=== PATIENT | female | born 1995 | race Two or more races ===

== ENCOUNTER → 2024-08-31 | Outpatient (CLI) | payer OTHER ==
[2024-08-31 11:29] LABS: Free T3 2.95 pg/mL (2.3-4.2); Free T4 (Free Thyroxine) 0.94 ng/dL (0.89-1.76)
== END | disposition home or self-care (01) ==
LOC: LAB 10:45
PROVIDERS: ATTEND Obstetrics & Gynecology
DX: Z34.80 Encounter for supervision of other normal pregnancy, unspecified trimester (principal); Z3A.00 Weeks of gestation of pregnancy not specified
CPT/HCPCS: 36415; 84439; 84443; 84481

== ENCOUNTER 2024-11-15 07:44 | Observation (INO) | payer OTHER ==
[2024-11-15] MEDS ORDERED: PREN-96 PO (13:32)
[2024-11-15] MEDS ORDERED: METF-370 PO (13:32)
[2024-11-15] MEDS ORDERED: LEVO50TA7 PO (13:32)
--- NOTE | 2024-11-15 14:14 | DVH ---
BIOPHYSICAL PROFILE HISTORY: GDMA1 Comparison Study: None available at time of dictation. TECHNIQUE: Multiple real-time grayscale sonographic images through the gravid uterus of the fetus wi th duplex Doppler color flow and M-mode spectral analysis FINDINGS: BIOPHYSICAL PROFILE: breathing score: 2 movement score: 2 tone score: 2 Quantitative SANDRA score: 2 (SANDRA: 19.6 Cm.) Total score: 8/8 The cervix is not seen. Single live fetus in cephalic presentation. heart rate 136 beats per minute. Posterior placenta without previa or abruption Biophysical profile score 8/8 corresponding to an DONY of 01/09/25 IMPRESSION: Biophysical profile score: 8/8
[2024-11-16] MEDS ORDERED: NIFE10CA52 PO (14:21)
[2024-11-16] MEDS ORDERED: CEPH250C PO (14:21)
--- NOTE | 2024-11-17 09:09 | DVHDS2 ---
Physician Discharge Progress N Final Diagnosis: gdm,hypothyroidism 32wks Operations or Procedures: Operations or Procedures nst 32 wks,sono Condition on Discharge: Good Disposition: Home Discharge Instructions: Diet: Consistent carbohydrate Activity: No Restrictions, As Tolerated Medications: na Follow Up Care: Specialist: 4d Discharge Statement: "Patient was advised to return to the ER or call 911 if any headaches, dizziness, shortness of breath, chest pain, abdominal pain, bleeding, fevers, or worsening of medical condition. Patient was counseled about treatment plan, medications, possible side effects, patientverbalized understanding. All questions were answered to the best of my ability. This discharge took greater then 30 minutes in planning, reviewing documentation, counseling the patient, and discussing with other team members." Visit Coding OBGYN Date of Service: Nov 15, 2024 Billing Provider: NEIL SINGH DO MANAGER FLEET Common Visit Codes: 68739-[id number] INP/OBS CARE (HIGH) MANAGER FLEET Procedure Codes: 88733-28- NON-STRESS TEST NEIL SINGH DO Nov 17, 2024 09:09
[2024-12-24] MEDS ORDERED: CEPH500T PO (08:56)
[2024-12-24] MEDS ORDERED: HYDR-4072 PO (08:56)
[2024-12-24] MEDS ORDERED: IBUP-1456 PO (08:56)
[2024-12-24] MEDS ORDERED: DOCU-94 PO (08:56)
== END 2024-11-15 14:25 | disposition home or self-care (01) ==
LOC: LDRP 13:00 → UNDOADMOB 13:00 → LDRP 13:11 → UNDODISOB 14:25
PROVIDERS: ADMIT Obstetrics & Gynecology; ATTEND Obstetrics & Gynecology
DX: O24.419 Gestational diabetes mellitus in pregnancy, unspecified control (principal); O99.283 Endocrine, nutritional and metabolic diseases complicating pregnancy, third trimester; E03.9 Hypothyroidism, unspecified; Z3A.32 32 weeks gestation of pregnancy; Z79.899 Other long term (current) drug therapy
CPT/HCPCS: 76818; 81002; 82948; 82962; 94760; G0378; 59025; 76819

== ENCOUNTER 2024-11-16 09:36 | Observation (INO) | payer OTHER ==
[~2024-11-16] VITALS: Ht 160 cm; Wt 81.6 kg
[~2024-11-16 09:36] MED LIST: LEVO50TA7 PO; METF-370 PO; PREN-96 PO
[2024-11-16] MEDS ORDERED: LACTATED RINGER'S 1,000 ML IV SCH (10:45)
[2024-11-16] MEDS: TERBUTALINE SULFATE 1 MG/ML 1ML VIAL SC ONE (10:45)
[2024-11-16] MEDS: NIFEdipine 10 MG CAP PO ONE (11:17)
--- NOTE | 2024-11-16 11:40 | DVH ---
LIMITED OB ULTRASOUND > 14 WKS: HISTORY: labor TECHNIQUE: Multiple real-time grayscale images of the gravid uterus with duplex Doppler color flow an d M-mode spectral analysis. TRANSDUCER: Transabdominal FINDINGS: IUP single live fetus at 34 weeks 2 days based on composite averages of the BPD, head circumference, abdominal circumference and femur length Estimated weight 2280 grams heart rate 167 beats per minute SANDRA 14.7 cm Cervix not well visualized Cephalic Presentation Posterior Placenta without previa or abruption. IMPRESSION: IUP single live fetus at 34 weeks 2 days AUA corresponding to an DONY of 12/26/2024
[2024-11-16] MEDS: TERBUTALINE SULFATE 1 MG/ML 1ML VIAL SC SCH (11:41)
[2024-11-16] MEDS: BETAMETHASONE ACET (30mg/5ml) 5ml Vial 6mg/ml IM ONE (12:07)
[2024-11-16] MEDS: ceFAZolin 2 GM/D5W50ml 50 ML IV ONE (12:19)
[2024-11-16] MEDS: LACTATED RINGER'S 1,000 ML IV ONE (12:20)
[2024-11-16] MEDS ORDERED: CEPH250C PO ×2 (14:21)
[2024-11-16] MEDS ORDERED: NIFE10CA52 PO (14:21)
[2024-11-16] MEDS ORDERED: BETAMETHASONE ACET (30mg/5ml) 5ml Vial 6mg/ml IM SCH (22:00)
--- NOTE | 2024-11-17 09:50 | DVHDS2 ---
Physician Discharge Progress N Final Diagnosis: 322 wks ptl Operations or Procedures: Operations or Procedures nst 32 wks,sono Condition on Discharge: Good Disposition: Home Discharge Instructions: Diet: Regular Activity: Light activity Medications: na Follow Up Care: Specialist: 1d Discharge Statement: "Patient was advised to return to the ER or call 911 if any headaches, dizziness, shortness of breath, chest pain, abdominal pain, bleeding, fevers, or worsening of medical condition. Patient was counseled about treatment plan, medications, possible side effects, patientverbalized understanding. All questions were answered to the best of my ability. This discharge took greater then 30 minutes in planning, reviewing documentation, counseling the patient, and discussing with other team members." Visit Coding OBGYN Date of Service: Nov 16, 2024 Billing Provider: NEIL SINGH DO LANDSCAPING SPECIALIST Common Visit Codes: 75513-[id number] INP/OBS CARE (HIGH) LANDSCAPING SPECIALIST Procedure Codes: 14004-85- NON-STRESS TEST NEIL SINGH DO Nov 17, 2024 09:50
== END 2024-11-16 14:40 | disposition home or self-care (01) ==
LOC: LDRP 09:36 → UNDOADMOB 09:36 → LDRP 09:46
PROVIDERS: ADMIT Obstetrics & Gynecology; ATTEND Obstetrics & Gynecology
DX: O60.03 Preterm labor without delivery, third trimester (principal); Z3A.32 32 weeks gestation of pregnancy; Z79.899 Other long term (current) drug therapy
CPT/HCPCS: 59025; 76805; 81002; 82948; 82962; 94760; 96365; 96372; G0378; J0690; J0702; J3105

== ENCOUNTER 2024-11-17 12:00 | Observation (INO) | payer OTHER ==
[~2024-11-17] VITALS: Ht 33 cm; Wt 0.5 kg
[~2024-11-17 12:00] MED LIST changes: +CEPH250C PO; +NIFE10CA52 PO
[2024-11-17] MEDS: BETAMETHASONE ACET (30mg/5ml) 5ml Vial 6mg/ml IM ONE (13:24)
--- NOTE | 2024-11-17 14:04 | DVH ---
Procedure: US BIOPHYSICAL PROFILE 11/17/2024 12:33 PM Indication: GDMA2 Comparison: US BIOPHYSICAL PROFILE on DOS: 11/15/24 Technique: Sonogram of gravid uterus utilizing grayscale and color techniques. FINDINGS: Single living intrauterine gestation. Presentation: Cephalic Placenta: Posterior heart rate: 151 bpm SANDRA: 16.8 cm, DVP: 6.1 cm Maternal cervix: Not visualized Biophysical Profile: breathing score: 2 movement score: 2 tone: 2 Quantitative SANDRA score: 2 Total score: 8/8 IMPRESSION: 1. Single living as above. 2. Biophysical profile score: 8/8.
--- NOTE | 2024-11-17 15:23 | DVHDS2 ---
Physician Discharge Progress N Final Diagnosis: GDMA2 PTL Operations or Procedures: Operations or Procedures NST/BPP/SANDRA 2nd dose of Celestone given Condition on Discharge: Stable Disposition: Home Discharge Instructions: Diet: Regular Activity: No Restrictions, As Tolerated Follow Up/Referral: as scheduled Medications: N/A Follow Up Care: Discharge Statement: "Patient was advised to return to the ER or call 911 if any headaches, dizziness, shortness of breath, chest pain, abdominal pain, bleeding, fevers, or worsening of medical condition. Patient was counseled about treatment plan, medications, possible side effects, patientverbalized understanding. All questions were answered to the best of my ability. This discharge took greater then 30 minutes in planning, reviewing documentation, counseling the patient, and discussing with other team members." Visit Coding OBGYN Date of Service: Nov 17, 2024 Billing Provider: XAVIER HODGES DO LENS ASSORTER Common Visit Codes: 20356-IMF/OBS SAME DATE (HIGH) LENS ASSORTER Procedure Codes: 53102-62- NON-STRESS TEST XAVIER HODGES DO Nov 17, 2024 15:23
[2024-12-24] MEDS ORDERED: HYDR-4072 PO (08:56)
[2024-12-24] MEDS ORDERED: CEPH500T PO (08:56)
[2024-12-24] MEDS ORDERED: IBUP-1456 PO (08:56)
[2024-12-24] MEDS ORDERED: DOCU-94 PO (08:56)
== END 2024-11-17 14:00 | disposition home or self-care (01) ==
LOC: LDRP 12:00
PROVIDERS: ADMIT Obstetrics & Gynecology; ATTEND Obstetrics & Gynecology
DX: O60.03 Preterm labor without delivery, third trimester (principal); O99.891 Other specified diseases and conditions complicating pregnancy; M54.9 Dorsalgia, unspecified; R51.9 Headache, unspecified; O24.419 Gestational diabetes mellitus in pregnancy, unspecified control; Z3A.32 32 weeks gestation of pregnancy; Z79.899 Other long term (current) drug therapy
CPT/HCPCS: 76818; 81002; 94760; 96372; G0378; 59025

== ENCOUNTER 2024-11-18 09:55 | Observation (INO) | payer OTHER | END 2024-11-18 10:00 | disposition home or self-care (01) | LOC: LDRP 09:55 | PROVIDERS: ADMIT Obstetrics & Gynecology; ATTEND Obstetrics & Gynecology | DX: O62.9 Abnormality of forces of labor, unspecified (principal); Z79.899 Other long term (current) drug therapy; Z98.890 Other specified postprocedural states; Z3A.00 Weeks of gestation of pregnancy not specified ==

== ENCOUNTER 2024-11-21 07:29 | Observation (INO) | payer OTHER ==
--- NOTE | 2024-11-21 10:00 | DVH ---
BIOPHYSICAL PROFILE HISTORY: GDMA2 TECHNIQUE: Multiple transabdominal real-time grayscale sonographic images through the gravid uterus of the fetus with duplex Doppler color flow and M-mode spectral analysis FINDINGS: BIOPHYSICAL PROFILE: breathing score: 2 movement score: 2 tone score: 2 Quantitative SANDRA score: 2 (SANDRA: 15.9 Cm.) Total score: 8 The cervix not well visualized. Single live fetus in cephalic presentation. heart rate 150 beats per minute. Posterior placenta without previa or abruption IMPRESSION: Biophysical profile score: 8
--- NOTE | 2024-11-21 21:14 | DVHDS2 ---
Physician Discharge Progress N Final Diagnosis: testing for GDMA2/hypothyroidism/PTL Operations or Procedures: Operations or Procedures 29yo IUP@33wks, +FM, denies UCs/VB/LOF VSS NST reactive FKC/PTL precautions reviewed. Dr. Clements consulted, agrees with POC. Other Interventions Other Interventions [place] [address] Ph: [phone] DIAGNOSTIC IMAGING Diagnostic Imaging Report : [id number] Signed PATIENT: AVINASH CARVALHO ACCT: [id number] UNIT: [id number] : 1995 LOC: [facility] ROOM / BED: TRIAGE1 / A AGE / SEX: 29 / F ADM STATUS: ADM IN SERVICE 6 ORDERING PHYSICIAN: GITA HEATON CNM PROCEDURE(s): BPP - BIOPHYSICAL PROFILE REASON: GDMA2 ORDER NUMBER(s): [id number], ACCESSION NUMBER(s): [id number] BIOPHYSICAL PROFILE HISTORY: GDMA2 TECHNIQUE: Multiple transabdominal real-time grayscale sonographic images through the gravid uterus of the fetus with duplex Doppler color flow and M-mode spectral analysis FINDINGS: BIOPHYSICAL PROFILE: breathing score: 2 movement score: 2 tone score: 2 Quantitative SANDRA score: 2 (SANDRA: 15.9 Cm.) Total score: 8 The cervix not well visualized. Single live fetus in cephalic presentation. heart rate 150 beats per minute. Posterior placenta without previa or abruption IMPRESSION: Biophysical profile score: 8 ATED BY: CHAPO BLAIR MD DICTATED DATE/TIME: 11/21/24 1000 SIGNED BY: CHAPO BLAIR MD SIGNED DATE/TIME: 11/21/24 1000 CC: Condition on Discharge: Stable Disposition: Home Discharge Instructions: Diet: Consistent carbohydrate Activity: See Comment Activity comment: pelvic rest Medications: see med list Follow Up Care: Specialist: f/u in 3 days Discharge Statement: "Patient was advised to return to the ER or call 911 if any headaches, dizziness, shortness of breath, chest pain, abdominal pain, bleeding, fevers, or worsening of medical condition. Patient was counseled about treatment plan, medications, possible side effects, patientverbalized understanding. All questions were answered to the best of my ability. This discharge took greater then 30 minutes in planning, reviewing documentation, counseling the patient, and discussing with other team members." Visit Coding OBGYN Date of Service: Nov 21, 2024 Billing Provider: GITA HEATON CNM ADMINISTRATOR OF HOME HEALTH Common Visit Codes: 10095-[id number] OBS CARE (HIGH) ADMINISTRATOR OF HOME HEALTH Procedure Codes: 57571-66- NON-STRESS TEST GITA HEATON CNM Nov 21, 2024 21:14
[2024-12-24] MEDS ORDERED: CEPH500T PO (08:56)
[2024-12-24] MEDS ORDERED: DOCU-94 PO (08:56)
[2024-12-24] MEDS ORDERED: IBUP-1456 PO (08:56)
[2024-12-24] MEDS ORDERED: HYDR-4072 PO (08:56)
== END 2024-11-21 10:16 | disposition home or self-care (01) ==
LOC: LDRP 09:00
PROVIDERS: ADMIT Obstetrics & Gynecology; ATTEND Obstetrics & Gynecology
DX: O24.419 Gestational diabetes mellitus in pregnancy, unspecified control (principal); O99.283 Endocrine, nutritional and metabolic diseases complicating pregnancy, third trimester; E03.9 Hypothyroidism, unspecified; Z98.890 Other specified postprocedural states; Z79.899 Other long term (current) drug therapy; Z3A.33 33 weeks gestation of pregnancy
CPT/HCPCS: 76818; 81002; 82948; 82962; 94760; G0378; 59025

== ENCOUNTER 2024-11-24 08:31 | Observation (INO) | payer OTHER ==
--- NOTE | 2024-11-24 18:51 | DVH ---
Procedure: US BIOPHYSICAL PROFILE 11/24/2024 03:27 PM Indication: GDMA2/Hypothyroid/PTL Comparison: US BIOPHYSICAL PROFILE on DOS: 11/21/24, US BIOPHYSICAL PROFILE on DOS: 11/17/24, US BIOPHYS ICAL PROFILE on DOS: 11/15/24 Technique: Sonogram of gravid uterus utilizing grayscale and color techniques. FINDINGS: Single living intrauterine gestation. Presentation: Cephalic Placenta: Posterior, grade 2 heart rate: 148 bpm SANDRA: 18.2 cm, DVP: 6 cm Maternal cervix: There is interval V-shaped funneling with internal measuring 1 cm in transverse. The cervix measures 3.9 cm in length in the transvaginal scan, moderately fluid-filled outlining plicae palmatae. Biophysical Profile: breathing score: 2 movement score: 2 tone: 2 Quantitative SANDRA score: 2 Total score: 8/8 IMPRESSION: 1. Single living as above. 2. Biophysical profile score: 8/8. 3. Interval V-shaped funneling of the internal os measuring 1 cm in transverse with moderate amount o f fluid in the cervical canal.
--- NOTE | 2024-11-25 08:13 | DVHDS2 ---
Physician Discharge Progress N Final Diagnosis: gdm 33wks,ptl,hypothyroid Operations or Procedures: Operations or Procedures nst,sono Condition on Discharge: Good Disposition: Home Discharge Instructions: Diet: Regular Activity: No Restrictions, As Tolerated Medications: na Follow Up Care: Specialist: 4d Discharge Statement: "Patient was advised to return to the ER or call 911 if any headaches, dizziness, shortness of breath, chest pain, abdominal pain, bleeding, fevers, or worsening of medical condition. Patient was counseled about treatment plan, medications, possible side effects, patientverbalized understanding. All questions were answered to the best of my ability. This discharge took greater then 30 minutes in planning, reviewing documentati on, counseling the patient, and discussing with other team members." Visit Coding OBGYN Date of Service: Nov 24, 2024 Billing Provider: NEIL SINGH DO JINRIKSHA DRIVER Common Visit Codes: 40269-[id number] INP/OBS CARE (HIGH) JINRIKSHA DRIVER Procedure Codes: 43078-92- NON-STRESS TEST NEIL SINGH DO Nov 25, 2024 08:13
== END 2024-11-24 17:03 | disposition home or self-care (01) ==
LOC: LDRP 14:58 → UNDOADMOB 14:58 → LDRP 15:04
PROVIDERS: ADMIT Obstetrics & Gynecology; ATTEND Obstetrics & Gynecology
DX: O60.03 Preterm labor without delivery, third trimester (principal); O24.419 Gestational diabetes mellitus in pregnancy, unspecified control; O99.283 Endocrine, nutritional and metabolic diseases complicating pregnancy, third trimester; E03.9 Hypothyroidism, unspecified; Z3A.33 33 weeks gestation of pregnancy; Z79.899 Other long term (current) drug therapy; Z98.890 Other specified postprocedural states
CPT/HCPCS: 76817; 76818; 81002; 82948; 82962; G0378; 59025

== ENCOUNTER 2024-11-28 06:55 | Observation (INO) | payer OTHER ==
--- NOTE | 2024-11-28 15:24 | DVH ---
BIOPHYSICAL PROFILE HISTORY: GDMA2/HYPOTHYROID Comparison Study: 11/24/2024 TECHNIQUE: Multiple real-time grayscale sonographic images through the gravid uterus of the fetus wi th duplex Doppler color flow and M-mode spectral analysis FINDINGS: BIOPHYSICAL PROFILE: breathing score: 2 movement score: 2 tone score: 2 Quantitative SANDRA score: 2 (SANDRA: 17.2 Cm.) Total score: 8 The cervix is not visualized Single live fetus in cephalic presentation. heart rate 148 beats per minute. Posterior placenta without previa or abruption IMPRESSION: Biophysical profile score: 8
--- NOTE | 2024-11-30 12:45 | DVHDS2 ---
Physician Discharge Progress N Final Diagnosis: ptl,gdm 34 wks Operations or Procedures: Operations or Procedures nst,sono Condition on Discharge: Good Disposition: Home Discharge Instructions: Diet: Consistent carbohydrate Activity: No Restrictions, As Tolerated Follow Up/Referral: as scheduled. Medications: na Follow Up Care: Specialist: 1w Discharge Statement: "Patient was advised to return to the ER or call 911 if any headaches, dizziness, shortness of breath, chest pain, abdominal pain, bleeding, fevers, or worsening of medical condition. Patient was counseled about treatment plan, medications, possible side effects, patientverbalized understanding. All questions were answered to the best of my ability. This discharge took greater then 30 minutes in planning, reviewing documentation, counseling the patient, and discussing with other team members." Visit Coding OBGYN Date of Service: Nov 28, 2024 Billing Provider: NEIL SINGH DO SPLITTER HEAD Common Visit Codes: 22567-[id number] INP/OBS CARE(HIGH) SPLITTER HEAD Procedure Codes: 44965-71- NON-STRESS TEST NEIL SINGH DO Nov 30, 2024 12:45
== END 2024-11-28 15:10 | disposition home or self-care (01) ==
LOC: UNDOADMOB 14:00 → LDRP 14:00
PROVIDERS: ADMIT Obstetrics & Gynecology; ATTEND Obstetrics & Gynecology
DX: O24.419 Gestational diabetes mellitus in pregnancy, unspecified control (principal); O99.283 Endocrine, nutritional and metabolic diseases complicating pregnancy, third trimester; E03.9 Hypothyroidism, unspecified; Z98.890 Other specified postprocedural states; Z79.899 Other long term (current) drug therapy; Z3A.34 34 weeks gestation of pregnancy
CPT/HCPCS: 76818; 81002; 82948; 82962; 94760; G0378; 59025; 76819

== ENCOUNTER 2024-12-01 13:54 | Observation (INO) | payer OTHER ==
--- NOTE | 2024-12-01 15:25 | DVH ---
EXAM: US BIOPHYSICAL PROFILE HISTORY: GDMA2/hypothyroid COMPARISON: US BIOPHYSICAL PROFILE on DOS: 11/28/24, US BIOPHYSICAL PROFILE on DOS: 11/24/24, US BIOPHYS ICAL PROFILE on DOS: 11/21/24 TECHNIQUE: Multiple transabdominal real-time grayscale sonographic images through the gravid uterus of the fetus with duplex Doppler color flow and M-mode spectral analysis Findings/Impression: Single live intrauterine in vertex presentation with heart rate of 157 bpm. Biophysical profile was performed with 2 points for respirations, 2 points for movement, 2 points for tone and 2 points for amniotic fluid index. Biophysical profile score of 8/8. Amniotic fluid is within normal limits with SANDRA 16.9 cm and MVP 5.7 cm. Normal SANDRA (5-25 cm) Normal MVP (2-8 cm)
--- NOTE | 2024-12-01 15:31 | DVHDS2 ---
Physician Discharge Progress N Final Diagnosis: cholestasis ,hypothyroid,gdm 34 wks Operations or Procedures: Operations or Procedures nst,sono Condition on Discharge: Good Disposition: Home Discharge Instructions: Diet: Consistent carbohydrate Activity: No Restrictions, As Tolerated Medications: call in actigall Follow Up Care: Specialist: 4d Discharge Statement: "Patient was advised to return to the ER or call 911 if any headaches, dizziness, shortness of breath, chest pain, abdominal pain, bleeding, fevers, or worsening of medical condition. Patient was counseled about treatment plan, medications, possible side effects, patientverbalized understanding. All questions were answered to the best of my ability. This discharge took greater then 30 minutes in planning, reviewing documentation, counseling the patient, and discussing with other team members." Visit Coding OBGYN Date of Service: Dec 01, 2024 Billing Provider: NEIL SINGH DO POWDER PRESS OPERATOR Common Visit Codes: [id number] INP/OBS CARE (HIGH) POWDER PRESS OPERATOR Procedure Codes: 94711-65- NON-STRESS TEST NEIL SINGH DO Dec 01, 2024 15:31
[2024-12-01 16:46] LABS: Eosinophils # (auto) 0.1 10 ^3/uL (0-0.8); Hematocrit 33.9 % (36.0-46.0); Lymphocytes # (auto) 1.8 10 ^3/uL (0.4-5.4)
[2024-12-01 16:48] LABS: Basophils # (auto) 0.1 10 ^3/uL (0-0.2); Basophils % (auto) 0.4 % (0.0-2.0); Eosinophils % (auto) 0.4 % (0.0-7.0); Hemoglobin 10.9 g/dL (12.2-16.2); Lymphocytes % (auto) 12.7 % (10.0-50.0); Mean Corpuscular Hemoglobin 26.4 pg (28.0-32.0); Mean Corpuscular Hgb Conc. 32.1 g/dL (32.0-36.0); Mean Corpuscular Volume 82.3 fL (80.0-100.0); Monocytes # (auto) 0.7 10 ^3/uL (0-1.3); Neutrophils # (auto) 11.7 10 ^3/uL (1.6-8.6); Neutrophils % (auto) 81.5 % (37.0-80.0); Platelet Count (auto) 226 10^3/uL (140-450); Red Blood Cells 4.12 10^6/uL (4.0-5.20); Red Cell Distribution Width 13.6 % (11.8-14.3); White Blood Cell 14.3 10^3/uL (4.4-10.8)
[2024-12-01 17:11] LABS: Alanine Aminotransferase 15 U/L (7-40); Albumin 4.2 g/dL (3.2-4.8); Alkaline Phosphatase 102 U/L (46-116); Anion Gap 11 (5-15); Aspartate Aminotransferase 14 U/L (13-40); Blood Urea Nitrogen 14 mg/dL (9-23); Calcium 9.5 mg/dL (8.7-10.4); Carbon Dioxide 21 mmol/L (20-31); Chloride 103 mmol/L (98-107); Glucose 101 mg/dL (74-106); Potassium 3.8 mmol/L (3.5-5.1); Total Protein 6.8 g/dL (5.7-8.2)
[2024-12-01 17:12] LABS: Bilirubin, Total 0.3 mg/dL (0.2-1.0); Sodium 135 mmol/L (136-145)
== END 2024-12-01 16:08 | disposition home or self-care (01) ==
LOC: UNDOADMOB 13:54 → LDRP 13:54
PROVIDERS: ADMIT Obstetrics & Gynecology; ATTEND Obstetrics & Gynecology
DX: O26.643 Intrahepatic cholestasis of pregnancy, third trimester (principal); K83.1 Obstruction of bile duct; O24.419 Gestational diabetes mellitus in pregnancy, unspecified control; O99.283 Endocrine, nutritional and metabolic diseases complicating pregnancy, third trimester; E03.9 Hypothyroidism, unspecified; Z3A.34 34 weeks gestation of pregnancy; Z98.890 Other specified postprocedural states; Z79.899 Other long term (current) drug therapy
CPT/HCPCS: 36415; 76819; 80053; 81002; 82948; 82962; 85025; G0378

== ENCOUNTER 2024-12-05 14:02 | Observation (INO) | payer OTHER ==
[2024-12-05] MEDS ORDERED: GLYB1.257 PO (15:01)
--- NOTE | 2024-12-05 15:01 | DVH ---
BIOPHYSICAL PROFILE HISTORY: GDMA1/hypothyroidism TECHNIQUE: Multiple transabdominal real-time grayscale sonographic images through the gravid uterus of the fetus with duplex Doppler color flow and M-mode spectral analysis FINDINGS: BIOPHYSICAL PROFILE: breathing score: 2 movement score: 2 tone score: 2 Quantitative SANDRA score: 2 (SANDRA: 16.1 Cm.) Total score: 8/8 The cervix not seen Single live fetus in cephalic presentation. heart rate 131 beats per minute. Posterior placenta without previa or abruption Biophysical profile score 8/8 corresponding to an DONY of 01/09/25 IMPRESSION: Biophysical profile score: 8/8
--- NOTE | 2024-12-05 23:03 | DVHDS2 ---
Physician Discharge Progress N Final Diagnosis: testing for GDMA1/hypothyroidism/possible cholestasis Operations or Procedures: Operations or Procedures 29yo IUP@35wks, denies itching, taking actigal and procardia 10mg q4hrs VSS NST reactive FKC/PTL precautions reviewed Dr. Clements consulted, ok to D/C home. Condition on Discharge: Stable Disposition: Home Discharge Instructions: Diet: Consistent carbohydrate Activity: No Restrictions, As Tolerated Medications: see med list Follow Up Care: Specialist: f/u in 3 days Discharge Statement: "Patient was advised to return to the ER or call 911 if any headaches, dizzine ss, shortness of breath, chest pain, abdominal pain, bleeding, fevers, or worsening of medical condition. Patient was counseled about treatment plan, medications, possible side effects, patientverbalized understanding. All questions were answered to the best of my ability. This discharge took greater then 30 minutes in planning, reviewing documentation, counseling the patient, and discussing with other team members." Visit Coding OBGYN Date of Service: Dec 05, 2024 Billing Provider: GITA HEATON CNM STAFFING CONSULTANT Common Visit Codes: 89722-[id number] OBS CARE (HIGH), 57314-OAILCCB INP/OBS CARE (HIGH) STAFFING CONSULTANT Procedure Codes: 72689-82- NON-STRESS TEST GITA HEATON CNM Dec 05, 2024 23:03
== END 2024-12-05 15:22 | disposition home or self-care (01) ==
LOC: LDRP 14:02
PROVIDERS: ADMIT Obstetrics & Gynecology; ATTEND Obstetrics & Gynecology
DX: O24.419 Gestational diabetes mellitus in pregnancy, unspecified control (principal); O99.283 Endocrine, nutritional and metabolic diseases complicating pregnancy, third trimester; E03.9 Hypothyroidism, unspecified; O60.03 Preterm labor without delivery, third trimester; Z3A.35 35 weeks gestation of pregnancy; Z79.899 Other long term (current) drug therapy
CPT/HCPCS: 76819; 81002; 82948; 82962; 94760; G0378

== ENCOUNTER 2024-12-07 14:48 | Observation (INO) | payer OTHER ==
[~2024-12-07 14:48] MED LIST changes: +GLYB1.257 PO
[2024-12-07] MEDS ORDERED: URSO300C2 PO (15:38)
--- NOTE | 2024-12-07 15:46 | DVH ---
BIOPHYSICAL PROFILE HISTORY: Contractions/GDMA1/Hypothyroidism Comparison Study: 12/05/2024 TECHNIQUE: Multiple real-time grayscale sonographic images through the gravid uterus of the fetus wi th duplex Doppler color flow and M-mode spectral analysis FINDINGS: BIOPHYSICAL PROFILE: breathing score: 2 movement score: 2 tone score: 2 Quantitative SANDRA score: 2 (SANDRA: 15.5 Cm.) Total score: 8 The cervix is not visualized Single live fetus in cephalic presentation. heart rate 163 beats per minute. Posterior placenta without previa or abruption IMPRESSION: Biophysical profile score: 8
--- NOTE | 2024-12-08 13:04 | DVHDS2 ---
Physician Discharge Progress N Final Diagnosis: iup at 35wks with hypothyroid,gdm Operations or Procedures: Operations or Procedures [id number],sono Condition on Discharge: Good Disposition: Home Discharge Instructions: Diet: Consistent carbohydrate Activity: Light activity Medications: na Follow Up Care: Specialist: 1w Discharge Statement: "Patient was advised to return to the ER or call 911 if any headaches, dizziness, shortness of breath, chest pain, abdominal pain, bleeding, fevers, or worsening of medical condition. Patient was counseled about treatment plan, medications, possible side effects, patientverbalized understanding. All questions were answered to the best of my ability. This discharge took greater then 30 minutes in planning, reviewing documentation, counseling the patient, and discussing with other team members." Visit Coding OBGYN Date of Service: Dec 07, 2024 Billing Provider: NEIL SINGH DO ORTHOPEDIC CODER Common Visit Codes: 98858-[id number] INP/OBS CARE (HIGH) ORTHOPEDIC CODER Procedure Codes: 60834-69- NON-STRESS TEST NEIL SINGH DO Dec 08, 2024 13:04
== END 2024-12-07 16:07 | disposition home or self-care (01) ==
LOC: LDRP 14:48 → UNDOADMOB 14:48 → LDRP 15:03
PROVIDERS: ADMIT Obstetrics & Gynecology; ATTEND Obstetrics & Gynecology
DX: O24.419 Gestational diabetes mellitus in pregnancy, unspecified control (principal); O99.283 Endocrine, nutritional and metabolic diseases complicating pregnancy, third trimester; E03.9 Hypothyroidism, unspecified; Z3A.35 35 weeks gestation of pregnancy; Z79.899 Other long term (current) drug therapy
CPT/HCPCS: 76818; 81002; 82948; 82962; 94760; G0378; 76819

== ENCOUNTER 2024-12-12 06:41 | Observation (INO) | payer OTHER ==
[~2024-12-12 06:41] MED LIST changes: +URSO300C2 PO
--- NOTE | 2024-12-12 15:33 | DVH ---
BIOPHYSICAL PROFILE HISTORY: NST/BPP Love, GDMA2, Shanell TECHNIQUE: Multiple transabdominal real-time grayscale sonographic images through the gravid uterus of the fetus with duplex Doppler color flow and M-mode spectral analysis FINDINGS: BIOPHYSICAL PROFILE: breathing score: 2 movement score: 2 tone score: 2 Quantitative SANDRA score: 2 (SANDRA: 16.8 Cm.) Total score: 8 The cervix not well visualized. Single live fetus in cephalic presentation. heart rate 159 beats per minute. Posterior placenta without previa or abruption IMPRESSION: Biophysical profile score: 8
--- NOTE | 2024-12-12 16:29 | DVHDS2 ---
Physician Discharge Progress N Final Diagnosis: GDM Hypothyroidism Operations or Procedures: Operations or Procedures NST/BPP/SANDRA Commentary: Commentary PATIENT: AVINASH CARVALHO ACCT: [id number] UNIT: [id number] : 1995 LOC: [facility] ROOM / BED: LD9 / AGE / SEX: 29 / F ADM STATUS: ADM IN SERVICE [id number] ORDERING PHYSICIAN: XAVIER HODGES DO PROCEDURE(s): BPP - BIOPHYSICAL PROFILE REASON: NST/BPP Love, GDMA2, Shanell ORDER NUMBER(s): [id number], ACCESSION NUMBER(s): [id number] BIOPHYSICAL PROFILE HISTORY: NST/BPP Love, GDMA2, Shanell TECHNIQUE: Multiple transabdominal real-time grayscale sonographic images through the gravid uterus of the fetus with duplex Doppler color flow and M-mode spectral analysis FINDINGS: BIOPHYSICAL PROFILE: breathing score: 2 movement score: 2 tone score: 2 Quantitative SANDRA score: 2 (SANDRA: 16.8 Cm.) Total score: 8 The cervix not well visualized. Single live fetus in cephalic presentation. heart rate 159 beats per minute. Posterior placenta without previa or abruption IMPRESSION: Biophysical profile score: 8 ATED BY: CHAPO BLAIR MD Condition on Discharge: Stable Disposition: Home Discharge Instructions: Diet: Consistent carbohydrate Activity: No Restrictions, As Tolerated Medications: na Follow Up Care: Discharge Statement: "Patient was advised to return to the ER or call 911 if any headaches, dizziness, shortness of breath, chest pain, abdominal pain, bleeding, fevers, or worsening of medical condition. Patient was counseled about treatment plan, medications, possible side effects, patientverbalized understanding. All questions were answered to the best of my ability. This discharge took greater then 30 minutes in planning, reviewing documentation, counseling the patient, and discussing with other team members." Visit Coding OBGYN Date of Service: Dec 12, 2024 Billing Provider: XAVIER HODGES DO HOLLOW WARE MAKER Common Visit Codes: 02046-LKO/OBS SAME DATE (MOD) HOLLOW WARE MAKER Procedure Codes: 51144-47- NON-STRESS TEST XAVIER HODGES DO Dec 12, 2024 16:29
== END 2024-12-12 16:02 | disposition home or self-care (01) ==
LOC: LDRP 13:59
PROVIDERS: ADMIT Obstetrics & Gynecology; ATTEND Obstetrics & Gynecology
DX: O99.283 Endocrine, nutritional and metabolic diseases complicating pregnancy, third trimester (principal); E03.9 Hypothyroidism, unspecified; O24.419 Gestational diabetes mellitus in pregnancy, unspecified control; Z98.890 Other specified postprocedural states; Z79.899 Other long term (current) drug therapy; Z3A.36 36 weeks gestation of pregnancy
CPT/HCPCS: 76819; 81002; 82948; 82962; 94760; G0378

== ENCOUNTER 2024-12-15 14:02 | Observation (INO) | payer OTHER ==
--- NOTE | 2024-12-15 15:19 | DVH ---
CLINICAL HISTORY: Gestational diabetes. Hypothyroid. Cholestasis. COMPARISON: US BIOPHYSICAL PROFILE on DOS: 12/12/24, US BIOPHYSICAL PROFILE on DOS: 12/07/24, US BIOPHY SICAL PROFILE on DOS: 12/05/24 TECHNIQUE: biophysical profile was performed. Transabdominal sonographic images of the fetus we re obtained. FINDINGS: The fetus is in cephalic position. heart rate measures 136 BPM. Amniotic fluid index measures 14.6 cm. The placenta is posterior in position without evidence of previa or abruption. BPP profile is an overall score of 8/8, with 2/2 points for breathing, with at least one episode of breathing over a 30 second duration during a 30 minute observation, 2/2 points for m ovements, with 3 or more discrete body or limb movements, 2/2 points for tone, with one or more episodes of extremity extension with return to flexion, or opening and closing of hand, and 2/ 2 points for amniotic fluid, with at least 1 pocket of amniotic fluid that measures 2 cm in 2 perpend icular planes. IMPRESSION: BPP score of 8/8.
--- NOTE | 2024-12-16 11:55 | DVHDS2 ---
Physician Discharge Progress N Final Diagnosis: hypothyroid,cholestasis,gdmn 36wks Operations or Procedures: Operations or Procedures [id number],sono Condition on Discharge: Good Disposition: Home Discharge Instructions: Diet: Consistent carbohydrate Activity: No Restrictions, As Tolerated Medications: na Follow Up Care: Specialist: 3d Discharge Statement: "Patient was advised to return to the ER or call 911 if any headaches, dizziness, shortness of breath, chest pain, abdominal pain, bleeding, fevers, or worsening of medical condition. Patient was counseled about treatment plan, medications, possible side effects, patientverbalized understanding. All questions were answered to the best of my ability. This discharge took greater then 30 minutes in planning, reviewing documentation, counseling the patient, and discussing with other team members." Visit Coding OBGYN Date of Service: Dec 15, 2024 Billing Provider: NEIL SINGH DO BODY AND FENDER MECHANIC APPRENTICE Common Visit Codes: 86114-[id number] INP/OBS CARE(HIGH) NEIL SINGH DO Dec 16, 2024 11:55
--- NOTE | 2024-12-20 05:07 | DVHHP ---
ADMIT DATE: 12/15/2024 CHIEF COMPLAINT: Desires repeat section. HISTORY OF PRESENT ILLNESS: The patient is a 3, para 2 female with EDC 01/09/2025, estimated gestational age of 37+ weeks, admitted for repeat section. The patient does not want any tubal ligation. The patient has cholestasis of . She was started on Actigall to which she responded. She also has hypothyroidism and GDM. She does not want any tubal ligation. PAST MEDICAL HISTORY: Hypothyroidism. PAST SURGICAL HISTORY: x 2. SOCIAL HISTORY: None. FAMILY HISTORY: None. OBSTETRIC AND GYNECOLOGIC HISTORY: Two sections. Blood type A positive, rubella immune. REVIEW OF SYSTEMS: Consistent with HPI. ALLERGIES: No known drug allergies. PHYSICAL EXAMINATION: VITAL SIGNS: Stable, afebrile. HEENT: Within normal limits. CARDIOVASCULAR: Regular rate and rhythm. LUNGS: Clear to auscultation. BREASTS: Symmetrical. No masses. ABDOMEN: Gravid. Positive heart. PELVIC: Cervix closed, thick and high. EXTREMITIES: No clubbing, cyanosis or edema. IMPRESSION: * Intrauterine at 37+ weeks with cholestasis of . * GDM. * Hypothyroidism. * Previous section x 2. PLAN: Repeat section. Informed consent obtained. Risks and complications of surgery including infection, bleeding, hematoma formation, injury to bowel, bladder, surrounding organs, possibility of DVT, pulmonary embolism, risk of anesthesia discussed. Options reviewed. All questions answered. The patient fully understands. She wishes to proceed with planned procedure. DO LORRIE Matthews TID: [id number] RECEIPT: [id number]
== END 2024-12-15 15:50 | disposition home or self-care (01) ==
LOC: LDRP 14:02 → UNDOADMOB 14:02 → LDRP 14:10
PROVIDERS: ADMIT Obstetrics & Gynecology; ATTEND Obstetrics & Gynecology
DX: O24.419 Gestational diabetes mellitus in pregnancy, unspecified control (principal); O99.283 Endocrine, nutritional and metabolic diseases complicating pregnancy, third trimester; E03.9 Hypothyroidism, unspecified; O26.643 Intrahepatic cholestasis of pregnancy, third trimester; K83.1 Obstruction of bile duct; Z3A.36 36 weeks gestation of pregnancy; Z79.899 Other long term (current) drug therapy
CPT/HCPCS: 76819; 81002; 82948; 82962; 94760; G0378

== ENCOUNTER 2024-12-20 06:26 | Observation (INO) | payer OTHER ==
[~2024-12-20] VITALS: Ht 160 cm; Wt 105.2 kg
--- NOTE | 2024-12-20 11:50 | DVH ---
BIOPHYSICAL PROFILE HISTORY: GDMA2, choley, hypothyroid TECHNIQUE: Multiple transabdominal real-time grayscale sonographic images through the gravid uterus of the fetus with duplex Doppler color flow and M-mode spectral analysis FINDINGS: BIOPHYSICAL PROFILE: breathing score: 2 movement score: 2 tone score: 2 Quantitative SANDRA score: 2 (SANDRA: 18.7 Cm.) Total score: 8/8 Single live fetus in cephalic presentation. heart rate 142 beats per minute. Grade 1 posterior placenta without previa or abruption Biophysical profile score 8/8 corresponding to an DONY of 01/09/25 IMPRESSION: Biophysical profile score: 8/8
[2024-12-20] MEDS: TERBUTALINE SULFATE 1 MG/ML 1ML VIAL SC SCH (11:58)
== END 2024-12-20 12:33 | disposition home or self-care (01) ==
LOC: LDRP 10:50 → UNDOADMOB 10:50 → LDRP 10:59
PROVIDERS: ADMIT Obstetrics & Gynecology; ATTEND Obstetrics & Gynecology
DX: O24.419 Gestational diabetes mellitus in pregnancy, unspecified control (principal); O26.643 Intrahepatic cholestasis of pregnancy, third trimester; K83.1 Obstruction of bile duct; O99.283 Endocrine, nutritional and metabolic diseases complicating pregnancy, third trimester; E03.9 Hypothyroidism, unspecified; Z3A.37 37 weeks gestation of pregnancy; Z79.899 Other long term (current) drug therapy
CPT/HCPCS: 76819; 81002; 82962; 94760; 96372; G0378; J3105

== ENCOUNTER 2024-12-22 04:31 | Inpatient (IN) | payer OTHER ==
[2024-12-20 12:05] LABS: Eosinophils # (auto) 0.1 10 ^3/uL (0-0.8); Eosinophils % (auto) 0.4 % (0.0-7.0); Hemoglobin 10.4 g/dL (12.2-16.2); Lymphocytes # (auto) 1.8 10 ^3/uL (0.4-5.4); Neutrophils # (auto) 12.2 10 ^3/uL (1.6-8.6); Platelet Count (auto) 233 10^3/uL (140-450); White Blood Cell 14.8 10^3/uL (4.4-10.8)
[2024-12-20 12:06] LABS: Basophils # (auto) 0.1 10 ^3/uL (0-0.2); Basophils % (auto) 0.4 % (0.0-2.0); Hematocrit 31.5 % (36.0-46.0); Lymphocytes % (auto) 12.3 % (10.0-50.0); Mean Corpuscular Hemoglobin 26.1 pg (28.0-32.0); Mean Corpuscular Volume 79.3 fL (80.0-100.0); Monocytes # (auto) 0.6 10 ^3/uL (0-1.3); Monocytes % (auto) 4.2 % (0.0-12.0); Neutrophils % (auto) 82.7 % (37.0-80.0); Red Blood Cells 3.98 10^6/uL (4.0-5.20); Red Cell Distribution Width 14.4 % (11.8-14.3)
[2024-12-20 12:18] LABS: Albumin 3.9 g/dL (3.2-4.8); Anion Gap 8 (5-15); BUN/Creatinine Ratio 20.6 (10.0-20.0); Blood Urea Nitrogen 13 mg/dL (9-23); Calcium 9.4 mg/dL (8.7-10.4); Carbon Dioxide 21 mmol/L (20-31); Chloride 106 mmol/L (98-107); Potassium 4.3 mmol/L (3.5-5.1); Total Protein 6.4 g/dL (5.7-8.2)
[2024-12-20 12:19] LABS: INR 0.92 (0.9-1.15); Partial Thromboplastin Time 22.9 SEC (24.5-34.5); Prothrombin Time 9.8 sec (9.3-11.8)
[2024-12-20 12:21] LABS: Alanine Aminotransferase < 9 U/L (7-40); Alkaline Phosphatase 118 U/L (46-116); Aspartate Aminotransferase 12 U/L (13-40); Bilirubin, Total 0.3 mg/dL (0.2-1.0); Glucose 109 mg/dL (74-106); Sodium 135 mmol/L (136-145)
[2024-12-20 12:30] LABS: Urine Bacteria None Seen /hpf (None Seen)
[2024-12-20 12:48] LABS: Urine Blood Negative /uL (Negative); Urine Clarity Clear (Clear); Urine Color Light-Yellow (Yellow); Urine Protein, UAD Negative (Negative); Urine Squamous Epithelial Cell FEW /hpf (<5); Urine Urobilinogen Normal (Negative); Urine WBC 14 /HPF (0-5); Urine pH 5.5 (5.0-9.0)
[2024-12-20 13:08] LABS: Amphetamine Screen, Urine Neg (NEGATIVE); Barbiturate Scree,Urine Neg (NEGATIVE); Benzodiazephine Screen, Urine Neg (NEGATIVE); Cannabinoid Screen, Urine Neg (NEGATIVE); Cocaine Screen, Urine Neg (NEGATIVE); Opiate Scree,Urine Neg (NEGATIVE); Phencyclidine Screen, Urine Neg (NEGATIVE)
[2024-12-21 09:10] LABS: Hepatitis B Surface Antibody Negative (Negative); Hepatitis C Antibody Negative (Negative)
[~2024-12-22] VITALS: Ht 160 cm; Wt 105.2 kg
[2024-12-22] VITALS (14 sets, daily range): BP systolic 99–118; BP diastolic 57–83; PULSE 77–95; RESP 16–18; TEMP 97.7–98.2; O2SAT 96–98
[2024-12-22] MEDS: LACTATED RINGER'S 1,000 ML IV ONE (05:23)
[2024-12-22] MEDS: LACTATED RINGER'S 1,000 ML IV SCH (05:59)
[2024-12-22] MEDS ORDERED: MORPHINE SULF PF 5 MG/10 ML VIAL ONE (06:51)
[2024-12-22] MEDS ORDERED: oxyTOCIN 10 UNIT/ML 10ML VIAL ONE (06:52)
[2024-12-22] MEDS: ceFAZolin 2 GM/D5W50ml 50 ML IV ONE (06:59)
[2024-12-22] MEDS ORDERED: ePHEDrine SULFATE 50 MG/ML AMP ONE ×2 (07:08→07:47)
[2024-12-22] MEDS: GUM (CHEWING) 1 GUM CHEW CHEW ONE (07:15)
[2024-12-22] MEDS ORDERED: ONDANSETRON HCL 4 MG/2 ML VIAL IV PRN (07:15)
[2024-12-22] MEDS ORDERED: ONDANSETRON HCL 4 MG/2 ML VIAL ONE (07:30)
[2024-12-22] MEDS ORDERED: MIDAZOLAM HCL 2MG/2ML 2ml VIAL (1mg/ml) ONE (07:31)
--- NOTE | 2024-12-22 08:03 | POSTOP ---
Post-Operative Note Post-Operative Note Preop Diagnosis iup at 37wks desires rcs ,early labor cholestasis of preg,gdm,macrosomia desires rcs ,nuchal cord,previous cs Postop Diagnosis: same Operation performed rcs Specimen baby girl ,apgars 8-9 Anesthesia: Regional Anesthesiologist: nuygen Blood Loss(fluid mgmt) 500ml Surgeon Neil Clements Chief Design Engineer josselyn Implant na Complications & Mgmt none Additional Remarks h and p [id number] and [id number] Date 12/22/24 Time 08:00 Visit Coding OBGYN Date of Service: Dec 22, 2024 Billing Provider: NEIL CLEMENTS DO PUBLIC RELATIONS COORDINATOR Common Visit Codes: 52857-[id number] INP/OBS CARE(HIGH) PUBLIC RELATIONS COORDINATOR Procedure Codes: 50915-K-[id number] DELIVERY ONLY NEIL CLEMENTS DO Dec 22, 2024 08:03
--- NOTE | 2024-12-22 08:06 | DVHOP2 ---
Operative Report DATE OF OPERATION:12/22/24 PREOPERATIVE DIAGNOSES: [iup at 37 wks in early labor,m acrosomia,gdm,hypothyroid,chol;estsis of preg,nuchal cord ] POSTOPERATIVE DIAGNOSES: [same] OPERATION PERFORMED: Repeat Section FINDINGS: [f] infant. Apgars of [8] and [9]. Weight [good] crying tone. [clear] amniotic fluid. Placenta and three-vessel were intact. Normal tubes, ovaries, and uterus. . SURGEON: Caro Clements D.O. GEOGRAPHIC INFORMATION SYSTEMS ENGINEER: public health technician, [josselyn]. ANESTHESIOLOGIST: Dada welch ANESTHESIA: [Duramorph spinal, regional]. COMPLICATIONS: [none]. ESTIMATED BLOOD LOSS: [500] mL. BLOOD PRODUCTS USED: [none]. PROCEDURE IN DETAIL: The patient was taken to the operating room, placed in sitting position, and spinal was placed without difficulty. She was then prepped and draped in a sterile fashion. A low Pfannenstiel incision was made scapel. At this point, it was carried down through the rectus fascia, nicked in the midline, and carried laterally. The rectus muscles were in the midline. Peritoneum was identified and entered with sharp dissection. Vesicouterine peritoneum was taken off the lower uterine segment. A lower uterine transverse incision was made with a scalpel down the chorionic membranes, ruptured with hemostat. was in vertex position. One hand was placed in the lower uterine segment. Head was essentially delivered spontaneously. Nose and mouth were bulb suctioned. Shoulders and torso were delivered without difficulty. Again, pharynx, nose, and mouth were re-suctioned with vigorous crying tone. Cord was cut. The was handed off to the awaiting Respiratory. At this point, umbilical blood sample was taken. Placenta was removed. Uterus was exteriorized, cleared off all clots and debris, irrigated, and closed with a double layer of 0-Vicryl. The vesicouterine peritoneum was incorporated into this closure. We had complete hemostasis. EBL was [500] mL. The instrument, lap, and sponge count was correct x1. The uterus was placed back into the peritoneum. The peritoneal cavity was re-inspected and the lower uterine incision with good hemostasis. We closed the peritoneum with running continuous of 2-0 Vicryl. The Rectus Fascia was closed with 0-PDS, running continuous, looped-0. The skin was closed undermined, irrigated, and close with kane. CONDITION: The patient's and the infant's condition is stable and but guarded. Visit Coding OBGYN Date of Service: Dec 22, 2024 Billing Provider: CARO CLEMENTS DO AIR CONDITIONING UNIT TESTER Common Visit Codes: [id number] INP/OBS CARE(HIGH) AIR CONDITIONING UNIT TESTER Procedure Codes: 21714-M-ITJHEAU DELIVERY ONLY CARO CLEMENTS DO Dec 22, 2024 08:06
[2024-12-22] MEDS ORDERED: MEPERIDINE HCL (25 MG/ML) 1ML VIAL IV PRN (08:30)
[2024-12-22] MEDS ORDERED: NALBUPHINE HCL 10 MG/1ml INJECTION SUBCUT ONE (08:30)
[2024-12-22] MEDS ORDERED: ACETAMINOPHEN IV 1000 MG/100ML (10MG/ML) IV PRN (08:30)
[2024-12-22] MEDS ORDERED: HYDROmorphone HCL 2 MG/ML VL/or syr IV PRN ×2 (08:30→10:00)
[2024-12-22] MEDS ORDERED: NALOXONE HCL 0.4 MG/ML VIAL IV PRN (08:30)
[2024-12-22] MEDS ORDERED: DexAMETHasone SOD PHOS 10MG/1ML VIAL INJ IV PRN (08:30)
[2024-12-22] MEDS: diphenhdrAMINE HCL 50 MG/1 ML VL IV PRN (12:49)
[2024-12-22] MEDS: ACETAMINOPHEN IV 1000 MG/100ML (10MG/ML) IV PRN (12:49)
[2024-12-22] MEDS: ONDANSETRON HCL 4 MG/2 ML VIAL IV PRN (12:56)
[2024-12-22] MEDS: ceFAZolin 1GM/50ML 50 ML IV SCH (17:25)
[2024-12-22 22:24] LABS: Basophils # (auto) 0 10 ^3/uL (0-0.2); Basophils % (auto) 0.2 % (0.0-2.0); Eosinophils # (auto) 0.1 10 ^3/uL (0-0.8); Eosinophils % (auto) 0.5 % (0.0-7.0); Hematocrit 28.9 % (36.0-46.0); Lymphocytes # (auto) 1.7 10 ^3/uL (0.4-5.4); Lymphocytes % (auto) 12.6 % (10.0-50.0); Mean Corpuscular Hgb Conc. 31.4 g/dL (32.0-36.0); Mean Corpuscular Volume 79.6 fL (80.0-100.0); Monocytes # (auto) 0.8 10 ^3/uL (0-1.3); Neutrophils # (auto) 10.7 10 ^3/uL (1.6-8.6); Neutrophils % (auto) 80.7 % (37.0-80.0); Platelet Count (auto) 189 10^3/uL (140-450); Red Blood Cells 3.62 10^6/uL (4.0-5.20); Red Cell Distribution Width 14.3 % (11.8-14.3); White Blood Cell 13.2 10^3/uL (4.4-10.8)
[2024-12-22] MEDS: KETOROLAC TROMETH 30 MG/ML 1ML VIAL IV PRN (23:50)
[2024-12-23] VITALS (9 sets, daily range): BP systolic 91–110; BP diastolic 53–68; PULSE 75–93; RESP 16–18; TEMP 97.9–98.5; O2SAT 95–98
[2024-12-23] MEDS: LEVOTHYROXINE SODIUM 50 MCG TAB PO SCH (05:53)
--- NOTE | 2024-12-23 06:18 | DVHPN2 ---
Chief Complaints Patient reports: No new complaints Nursing reports: No new complaints Objective Vitals Vital Signs Date Time Temp Pulse Resp B/P (MAP) Pulse Ox O2 Delivery O2 Flow Rate FiO2 12/23/24 06:07 98.2 92 18 100/66 (77) 97 98.2 12/22/24 18:59 Room Air 12/22/24 08:21 96 Medications Current Medications Medications (Trade) Dose Ordered Sig/Lucía Route PRN Reason Start Time Stop Time Status Last Admin Acetaminophen (Ofirmev) 1,000 mg Q8HPRN PRN IV PAIN SCALE 1-3 OR TEMP>100.4 12/22/24 12:30 12/23/24 05:22 Cefazolin Sodium 50 ml @ 100 mls/hr Q8HR IV 12/22/24 17:30 12/23/24 06:29 12/23/24 01:07 Diphenhydramine HCl (Benadryl Injection) 25 mg Q4HP PRN IV FOR ITCHING 12/22/24 08:30 12/22/24 12:49 Ketorolac Tromethamine (Toradol Injection) 30 mg Q6HP PRN IV MODERATE PAIN (4-6 PAIN SCALE) 12/22/24 08:30 12/27/24 08:29 12/22/24 23:50 Levothyroxine Sodium (Synthroid Tablet) 150 mcg QAM@0600 PO 12/23/24 06:00 12/23/24 05:53 Ondansetron HCl (Zofran) 4 mg Q4HP PRN IV NAUSEA / VOMITING 12/22/24 08:30 12/22/24 12:56 Lungs: Normal Cardiovascular: Normal Abdominal: Soft Extremities: Normal Studies Laboratory Tests 12/22/24 21:50 12/20/24 11:49 Test 12/20/24 11:49 Range/Units Serum Glucose 109 H 74-106 mg/dL Ass/Plan Assessment s/p rcs Plan supportive care Visit Coding OBGYN Date of Service: Dec 23, 2024 Billing Provider: NEIL SINGH DO CLIN NURSE Common Visit Codes: [id number] INP/OBS CARE(HIGH) NEIL SINGH DO Dec 23, 2024 06:18
[2024-12-23] MEDS: HYDROcodone-ACET 5/325MG TAB PO PRN (09:39)
[2024-12-23 09:42] LABS: Basophils # (auto) 0 10 ^3/uL (0-0.2); Basophils % (auto) 0.2 % (0.0-2.0); Hemoglobin 9.4 g/dL (12.2-16.2); Lymphocytes # (auto) 1.2 10 ^3/uL (0.4-5.4); Monocytes # (auto) 0.6 10 ^3/uL (0-1.3)
[2024-12-23 09:43] LABS: Eosinophils # (auto) 0 10 ^3/uL (0-0.8); Eosinophils % (auto) 0.4 % (0.0-7.0); Hematocrit 29.6 % (36.0-46.0); Lymphocytes % (auto) 9.7 % (10.0-50.0); Mean Corpuscular Hemoglobin 25.2 pg (28.0-32.0); Mean Corpuscular Hgb Conc. 31.8 g/dL (32.0-36.0); Mean Corpuscular Volume 79.1 fL (80.0-100.0); Monocytes % (auto) 4.6 % (0.0-12.0); Neutrophils % (auto) 85.1 % (37.0-80.0); Platelet Count (auto) 187 10^3/uL (140-450); Red Blood Cells 3.74 10^6/uL (4.0-5.20); Red Cell Distribution Width 14.2 % (11.8-14.3); White Blood Cell 12.9 10^3/uL (4.4-10.8)
[2024-12-23] MEDS: DOCUSATE SOD 100 MG CAP PO SCH (09:50)
[2024-12-23] MEDS: SIMETHICONE 80 MG CHEWABLE TABLET PO SCH (13:02)
[2024-12-23] MEDS: IBUPROFEN 800 MG TAB PO PRN (13:02)
[2024-12-24 03:00] VITALS: BP 108/67; PULSE 79; RESP 17; TEMP 97.9; O2SAT 97
[2024-12-24] MEDS: HYDROcodone-ACET 5/325MG TAB PO PRN (05:45)
[2024-12-24] MEDS: LEVOTHYROXINE SODIUM 25 MCG TAB PO SCH (05:47)
[2024-12-24 07:20] VITALS: BP 127/70; PULSE 89; RESP 18; TEMP 98; O2SAT 97
--- NOTE | 2024-12-24 08:15 | DVHPN2 ---
Chief Complaints Patient reports: No new complaints Nursing reports: No new complaints Objective Vitals Vital Signs Date Time Temp Pulse Resp B/P (MAP) Pulse Ox O2 Delivery O2 Flow Rate FiO2 12/24/24 07:20 98.0 89 18 127/70 (89) 97 98.0 12/24/24 06:52 Room Air 12/22/24 08:21 96 Medications Current Medications Medications (Trade) Dose Ordered Sig/Lucía Route PRN Reason Start Time Stop Time Status Last Admin Acetaminophen/ Hydrocodone Bitart ([place] 5/325MG Tab) 1 tab Q4HPRN PRN PO FOR PAIN 1-6 12/23/24 08:30 12/24/24 05:45 Acetaminophen/ Hydrocodone Bitart ([place] 5/325MG Tab) 2 tab Q4HPRN PRN PO FOR PAIN 7-12/23/24 08:30 12/23/24 20:08 Dimethicone (Mylicon Tab) 80 mg QID PO 12/23/24 12:00 12/24/24 06:37 Docusate Sodium (Colace Capsule) 100 mg Q12HR PO 12/23/24 10:00 12/23/24 22:33 Ibuprofen (Motrin Tablet) 800 mg Q8HP PRN PO BREAKTHROUGH PAIN 12/23/24 08:30 12/24/24 07:49 Levothyroxine Sodium (Synthroid Tablet) 75 mcg QAM@0600 PO 12/24/24 06:00 12/24/24 05:47 General: Normal Lungs: Normal Cardiovascular: Normal Abdominal: Soft Extremities: Normal Studies Laboratory Tests 12/23/24 09:30 12/20/24 11:49 Test 12/20/24 11:49 Range/Units Serum Glucose 109 H 74-106 mg/dL Ass/Plan Assessment s/p rcs Plan PT EXPRESSES DESIRE TO GO HOME DC HOME FU 1WK Visit Coding OBGYN Date of Service: Dec 24, 2024 Billing Provider: NEIL SINGH DO BOOTH SUPERVISOR Common Visit Codes: 10209-GIX/OBS DISCH DAY <30MIN NEIL SINGH DO Dec 24, 2024 08:15
--- NOTE | 2024-12-24 08:18 | DVHDS2 ---
Obstetrics Discharge Summary Obstetrics Discharge Summary Date of Admission: Dec 22, 2024 Date of Discharge: Dec 24, 2024 Reason For Admission: Onset of Labor, Section (Repeat) Procedures: NST Intrapartum Procedures: (Low Cervical Transverse) Procedures: None Operative Complicat: None Discharge Diagnosis: Delivery Discharge Information: Activity (Other), Diet (Routine), Medications (Name:), Instructions (Routine), Discharge to (Home), Discarge date (4-5) Visit Coding OBGYN Date of Service: Dec 24, 2024 Billing Provider: NEIL SINGH DO RESOLUTION SPECIALIST Common Visit Codes: 20192-QWK/OBS DISCH DAY <30MIN NEIL SINGH DO Dec 24, 2024 08:18
[2024-12-24] MEDS ORDERED: CEPH500T PO ×2 (08:56)
[2024-12-24] MEDS ORDERED: IBUP-1456 PO ×2 (08:56)
[2024-12-24] MEDS ORDERED: HYDR-4072 PO ×2 (08:56)
[2024-12-24] MEDS ORDERED: DOCU-94 PO ×2 (08:56)
== END 2024-12-24 09:55 | disposition home or self-care (01) | DRG 787 ==
LOC: LDRP 04:31
PROVIDERS: ADMIT Obstetrics & Gynecology; ATTEND Obstetrics & Gynecology
PROC: 10D00Z1 Extraction of Products of Conception, Low, Open Approach (ICD-10-PCS; principal; 2024-12-22 07:07)
DX: O34.211 Maternal care for low transverse scar from previous cesarean delivery (principal); O26.643 Intrahepatic cholestasis of pregnancy, third trimester; O36.63X0 Maternal care for excessive fetal growth, third trimester, not applicable or unspecified; O69.81X0 Labor and delivery complicated by cord around neck, without compression, not applicable or unspecified; O24.429 Gestational diabetes mellitus in childbirth, unspecified control; O99.284 Endocrine, nutritional and metabolic diseases complicating childbirth; K76.89 Other specified diseases of liver; Z37.0 Single live birth; E03.9 Hypothyroidism, unspecified; Z3A.37 37 weeks gestation of pregnancy
CPT/HCPCS: 36415; 80053; 80307; 81001; 82948; 82962; 85025; 85610; 85730; 86706; 86780; 86803; 86850; 86900; 86901; 94760; 94762; 96360; 96361; 96366; 96374; G0378; J0131; J1885; J2250; J2405; J2590

== ENCOUNTER 2025-02-20 00:12 | Emergency (ER) | payer OTHER ==
[~2025-02-20] VITALS: Ht 160 cm; Wt 97.0 kg
[~2025-02-20 00:12] MED LIST changes: +CEPH500T PO; +DOCU-94 PO; +HYDR-4072 PO; +IBUP-1456 PO; -NIFE10CA52 PO
[2025-02-20] MEDS ORDERED: KETOROLAC TROMETH 30 MG/ML 1ML VIAL IV ONE (01:00)
[2025-02-20] MEDS ORDERED: DICYCLOMINE HCL (10MG/ML) 2 ML AMPULE IM ONE (01:00)
[2025-02-20] MEDS ORDERED: PANTOPRAZOLE 40 MG/10 ML VIAL INJ IV ONE (01:00)
[2025-02-20] MEDS ORDERED: ONDANSETRON HCL 4 MG/2 ML VIAL IV ONE (01:00)
[2025-02-20] MEDS ORDERED: SODIUM CHLORIDE 0.9% 1,000 ML IV ONE (01:00)
--- NOTE | 2025-02-20 01:04 | ED.PDOC ---
GI ASSESSMENT HPI Comments 29-year-old female with a history of Shanell's, gestational diabetes, currently 8 weeks brought in by self complaining of upper abdominal pain radiating to the back associated with nausea, onset around 1999 last night. Patient states pain came on suddenly, is currently constant, severe, no particular alleviating factors. She denies fever, sick contacts, vomiting, diarrhea, constipation or urinary symptoms. She states she is currently on her menstrual cycle. Chief Complaint: Abdominal pain Time Seen by MD: 00:50 Reviewed Notes: Nurses Notes Allergies: Coded Allergies: Egg-derived Products (Verified Allergy, Intermediate, 12/22/24) Home Meds Active Scripts Ibuprofen (Ibuprofen) 800 Mg Tab, 800 MG PO TID PRN for 4 Days, #12 TAB Prov:NEIL SINGH 12/24/24 Hydrocodone-Acetaminophen (Hydrocodone/Acetaminophen 10-325 mg) 1 Tab Tab, 1 TAB PO Q6HPRN PRN for 7 Days, #28 TAB Prov:SAMANTHANEIL DO 12/24/24 Docusate Sodium (Colace) 100 Mg Cap, 1 CAP PO BID, #60 CAP 2 Refills Prov:NEIL SINGH 12/24/24 Cephalexin Monohydrate (Cephalexin) 500 Mg Tab, 1 TAB PO QID for 7 Days, #28 TAB Prov:NEIL SINGH 12/24/24 Reported Medications Ursodiol (Ursodiol) 300 Mg Cap, 300 MG PO BID for 30 Days, MG 12/07/24 Glyburide (Glyburide) 1.25 Mg Tab, 1.25 MG PO HS, TAB 12/05/24 Cephalexin (KEFLEX CAPSULE) 250 Mg Cp, 500 MG PO 11/16/24 Metformin Hydrochloride (Metformin Hcl) 500 Mg Tab, 500 MG PO DAILY for 30 Days, MG 11/15/24 Vit W/ Ferrous Fumara ( One Daily) Daily Tab, 1 TAB PO DAILY, #90 TAB 3 Refills 11/15/24 Levothyroxine Sodium (Levothyroxine Sodium) 50 Mcg Tab, 75 MCG PO QPM for 30 Days, MCG 11/15/24 Information Source: Patient Mode of Arrival: Ambulatory Past Medical History PAST MEDICAL HISTORY: Thyroid Past Medical History (Other): Shanell's Surgical History: Cholecystectomy, DISABILITY EXAMINER History: Other (Eight weeks , gestational diabetes) Family History Family History: Reviewed,noncontributory to illness Social History Smoker: Non-Smoker Alcohol: Denies ETOH Use Drugs: Denies Drug Use Lives In: Home All Other Systems: Reviewed and Negative (Comprehensive systems review obtained and negative except for what is stated in the HPI.) Physical Exam General Appearance: Mild Distress HEENT: Other (Pupils and face symmetric. Moist mucous membranes.) Neck: Full Range of Motion, Normal Inspection Respiratory: Lungs Clear, No Accessory Muscle Use, No Respiratory Distress, Normal Breath Sounds Cardiovascular: No Edema, No JVD, Regular Rate/Rhythm Breast Exam: Deferred Gastrointestinal: Epigastric, LUQ, RUQ, Soft, Tenderness Genitalia: Deferred Pelvic: Deferred Rectal: Deferred Extremities: Normal inspection, Normal range of motion, Non-tender, No pedal edema Neurologic: Alert (Oriented x4), Other (Tearful, ambulatory without difficulty.) Cerebellar Function: NOT DONE Reflexes: NOT DONE Skin: Dry, Normal Color, Warm Lymphatic: NOT DONE Was a procedure done? Was a procedure done?: No GI differential Dx Differential Diagnosis: Appendicitis, Bowel Obstruction, Cholangitis, Constipation, Diverticular disease, Gastritis/PUD, Gastroenteritis, Inflammatory BD, Pancreatitis, UTI, Electrolyte Imbalance, Food Poisoning, , Bacterial, Viral, Impaction, Stress Ulcer X-Ray, Labs, Meds, VS Vital Signs Date Time Temp Pulse Resp B/P (MAP) Pulse Ox O2 Delivery O2 Flow Rate FiO2 02/20/25 00:15 98.9 110 20 129/87 (101) 99 98.9 Lab Test 02/20/25 01:11 02/20/25 00:55 Range/Units White Blood Count 12.9 H 4.4-10.8 10^3/uL Red Blood Count 5.17 4.0-5.20 10^6/uL Hemoglobin 12.7 12.2-16.2 g/dL Hematocrit 39.7 36.0-46.0 % Mean Corpuscular Volume 76.8 L 80.0-100.0 fL Mean Corpuscular Hemoglobin 24.5 L 28.0-32.0 pg Mean Corpuscular Hemoglobin Concent 31.9 L 32.0-36.0 g/dL Red Cell Distribution Width 18.6 H 11.8-14.3 % Platelet Count 307 140-450 10^3/uL Mean Platelet Volume 9.4 6.9-10.8 fL Neutrophils (%) (Auto) 77.4 37.0-80.0 % Lymphocytes (%) (Auto) 15.2 10.0-50.0 % Monocytes (%) (Auto) 5.3 0.0-12.0 % Eosinophils (%) (Auto) 1.2 0.0-7.0 % Basophils (%) (Auto) 0.9 0.0-2.0 % Neutrophils # (Auto) 10.0 H 1.6-8.6 10 ^3/uL Lymphocytes # (Auto) 1.9 0.4-5.4 10 ^3/uL Monocytes # (Auto) 0.7 0-1.3 10 ^3/uL Eosinophils # (Auto) 0.2 0-0.8 10 ^3/uL Basophils # (Auto) 0.1 0-0.2 10 ^3/uL Nucleated Red Blood Cells 0.0 % Sodium Level 139 136-145 mmol/L Potassium Level 4.0 3.5-5.1 mmol/L Chloride Level 106 98-107 mmol/L Carbon Dioxide Level 25 20-31 mmol/L Anion Gap 8 5-15 Blood Urea Nitrogen 18 9-23 mg/dL Creatinine 0.83 0.550-1.02 mg/dL Glomerular Filtration Rate Calc 98 >90 mL/min BUN/Creatinine Ratio 21.7 H 10.0-20.0 Serum Glucose 96 74-106 mg/dL Calcium Level 9.2 8.7-10.4 mg/dL Total Bilirubin 0.2 0.2-1.0 mg/dL Aspartate Amino Transferase (AST) 12 L 13-40 U/L Alanine Aminotransferase (ALT) 11 7-40 U/L Alkaline Phosphatase 64 46-116 U/L Troponin I High Sensitivity 10 </=34 ng/L Total Protein 7.4 5.7-8.2 g/dL Albumin 4.6 3.2-4.8 g/dL Lipase 47 12-53 U/L Urine Color Yellow Yellow Urine Clarity Clear Clear Urine pH 5.5 5.0-9.0 Urine Specific [place] 1.032 1.001-1.035 Urine Protein Negative Negative Urine Ketones Negative Negative Urine Blood 2+ H Negative /uL Urine Nitrite Negative Negative Urine Bilirubin Negative Negative Urine Urobilinogen Normal Negative mg/dL Urine Leukocyte Esterase Trace Negative /uL Urine RBC 2 0 - 4 /hpf Urine Microscopic WBC 2 0-5 /HPF Urine Squamous Epithelial Cells Few <5 /hpf Urine Bacteria None Seen /hpf Urine Mucus Few None Seen Urine Glucose Normal Normal mg/dL Urine Test Negative Negative X-Ray, Labs, Meds, VS Comment 29-year-old female with a history of Shanell's, gestational diabetes and 8 weeks complaining of upper abdominal pain and nausea Vitals remarkable for heart rate 110 Exam remarkable for upper abdominal tenderness to palpation Rhythm strip independently interpreted by me: Sinus rhythm, rate 110 , no ectopy. CT abdomen and pelvis result pending CBC remarkable for WBC 12.9. CMP, lipase and troponin unremarkable, UA and urine preg pending The following was ordered for the patient in the ED:: 1 L 0.9 normal saline IV bolus, Zofran 4 mg IV, Toradol 30 mg IV, Protonix 40 mg IV, Bentyl 20 mg IM As of 299, patient was still awaiting medication administration. Patient does not appear septic at this time. Tachycardia is likely due to pain. Patient endorsed to the overnight ED physician pending urine and CT results and re-evaluation. Time of 1ST Reevaluation: 02:05 Reevaluation 1ST: Unchanged Patient Education/Counseling: Diagnosis, Treatment Family Education/Counseling: No Family Present Sepsis Recent Procedure: No On Antibiotic Therapy: No Respiratory Rate >20: No Heart Rate >90: Yes Temp<36 C (96.8 F) or >38.3 C: No SBP <90 or MAP <65 mmHG: No New Acute Mental Status Change: No Is the patient on CPAP, BIPAP,: No IV fluid given: Yes Departure 1 Departure Time of Disposition: 05:46 (Patient presented with abdominal pain that was concerning for possible appendicits, gastritis, cholecystitis, colitis, gastroenteritis, or orther possible surgical emergency. Data: 1. I ordered and reviewed the result of at least 3 labs including a CBC, BMP, and Urinalysis. 2. I independently interpreted the following tests: CT Abdoment and Pelvis is concerning for benign abdomen .Risk:This patient has a high risk of morbidity due to further diagnostic testing or treatment and may suffer from an acute abdominal process disorder. Fortunately workup reveals benign abdomen and patient can be safely discharged to home with outpatient follow up.) Impression: Primary Impression: Abdominal pain Qualified Codes: R10.10 - Upper abdominal pain, unspecified Additional Impression: Nausea Disposition: HOME / SELF CARE / HOMELESS Condition: Stable Additional Instructions: Your workup today was benign including normal labs, normal urine, normal CT scan. You may have acid reflux. You can take omeprazole 20 mg daily for 2 weeks. It is important to follow up with the regular doctor within 1 week. If your symptoms worsen or you have any other concerns please return to the emergency room. Discharged With: Self Critical Care Note Critical Care Time?: No Stability Stability form required: No Heart Score Heart Score: Heart Score Response (Comments) Value History N/A 0 EKG N/A 0 Age N/A 0 Risk Factors N/A 0 Troponin N/A 0 Total 0 AU MARTINEZ VILLALTA MD Feb 20, 2025 01:04 JOSEPHINE CASILLAS MD Feb 20, 2025 05:47
[2025-02-20 01:25] LABS: Basophils # (auto) 0.1 10 ^3/uL (0-0.2); Lymphocytes # (auto) 1.9 10 ^3/uL (0.4-5.4); Lymphocytes % (auto) 15.2 % (10.0-50.0); Red Cell Distribution Width 18.6 % (11.8-14.3)
[2025-02-20 01:26] LABS: Basophils % (auto) 0.9 % (0.0-2.0); Eosinophils # (auto) 0.2 10 ^3/uL (0-0.8); Eosinophils % (auto) 1.2 % (0.0-7.0); Hematocrit 39.7 % (36.0-46.0); Hemoglobin 12.7 g/dL (12.2-16.2); Mean Corpuscular Hemoglobin 24.5 pg (28.0-32.0); Mean Corpuscular Hgb Conc. 31.9 g/dL (32.0-36.0); Mean Corpuscular Volume 76.8 fL (80.0-100.0); Monocytes # (auto) 0.7 10 ^3/uL (0-1.3); Monocytes % (auto) 5.3 % (0.0-12.0); Neutrophils % (auto) 77.4 % (37.0-80.0); Platelet Count (auto) 307 10^3/uL (140-450); Red Blood Cells 5.17 10^6/uL (4.0-5.20); White Blood Cell 12.9 10^3/uL (4.4-10.8)
[2025-02-20 01:46] LABS: Alanine Aminotransferase 11 U/L (7-40); Albumin 4.6 g/dL (3.2-4.8); Alkaline Phosphatase 64 U/L (46-116); Anion Gap 8 (5-15); BUN/Creatinine Ratio 21.7 (10.0-20.0); Blood Urea Nitrogen 18 mg/dL (9-23); Calcium 9.2 mg/dL (8.7-10.4); Carbon Dioxide 25 mmol/L (20-31); Chloride 106 mmol/L (98-107); Glucose 96 mg/dL (74-106); Lipase 47 U/L (12-53); Sodium 139 mmol/L (136-145); Total Protein 7.4 g/dL (5.7-8.2)
[2025-02-20 01:54] LABS: Aspartate Aminotransferase 12 U/L (13-40); Bilirubin, Total 0.2 mg/dL (0.2-1.0)
[2025-02-20 04:45] LABS: Urine Blood 2+ /uL (Negative); Urine Clarity Clear (Clear); Urine Color Yellow (Yellow); Urine Mucus FEW (None Seen); Urine Protein, UAD Negative (Negative); Urine Specific Gravity 1.032 (1.001-1.035); Urine Squamous Epithelial Cell FEW /hpf (<5); Urine Urobilinogen Normal (Negative); Urine WBC 2 /HPF (0-5); Urine pH 5.5 (5.0-9.0)
--- NOTE | 2025-02-20 05:25 | DVH ---
Exam: CT CT AB PEL WO CON-NO ORAL OR IV History: Upper abd pain rad to back, nausea Comparison Study: None Technique: Multidetector spiral CT of the abdomen and pelvis was performed from lung bases to pubic s ymphysis. Imaging was performed without intravenous contrast. Coronal and sagittal multiplanar reform ats were obtained from the axial data set by the technologist. Radiation Dose : 1. Abdomen/Pelvis: CTDIvol 17.59 mGy, DLP 961.26 mGy*cm. Findings: Evaluation of vasculature and solid organs is limited due to lack of intravenous contrast use. Lung Bases: Emphysema in the left lower lobe. Visualized portions of the heart and pericardium are un remarkable. Liver: The liver is normal in size. No focal lesions. Gallbladder and Biliary Tree: The gallbladder is unremarkable. No intrahepatic or extrahepatic bilia ry ductal dilatation. Spleen: Unremarkable Pancreas: The pancreas is grossly unremarkable. Adrenal Glands: Unremarkable Kidneys: Kidneys are unremarkable without calculi or hydronephrosis. GI tract: The stomach is grossly normal in appearance. No evidence of small bowel wall thickening or abnormal dilatation to suggest bowel obstruction. The colon is unremarkable. The appendix is visualiz ed and is normal. Peritoneum/mesentery/retroperitoneum. No evidence of free intraperitoneal air. No ascites. No evidenc e of suspicious lymphadenopathy. Abdominal Wall: Fat containing umbilical hernia. Vasculature: The visualized abdominal aorta is normal in size and caliber. Evaluation of abdominal a nd pelvic vessels is limited due to lack of intravenous contrast. Urinary Bladder: Grossly unremarkable for degree of distention. Pelvic Organs: Unremarkable Musculoskeletal: No aggressive focal bony lesions, acute fractures or dislocation. IMPRESSION: 1. No acute abdominal or pelvic findings.
[2025-02-20 06:15] VITALS: BP 147/86; PULSE 120; RESP 20; TEMP 98.4; O2SAT 98
== END 2025-02-20 06:23 | disposition left against medical advice (07) ==
LOC: ER 00:17
DX: R10.10 Upper abdominal pain, unspecified (principal); R11.0 Nausea; E06.3 Autoimmune thyroiditis; Z90.49 Acquired absence of other specified parts of digestive tract; Z91.012 Allergy to eggs
CPT/HCPCS: 36415; 74176; 80053; 81001; 81025; 83690; 84484; 85025